=== PATIENT | female | born 1945 | race Caucasian/White ===

== ENCOUNTER 2020-03-05 17:28 | Inpatient (IN) ==
[2020-03-05] MEDS ORDERED: ONDANSETRON 4 MG/2 ML VIAL IV PRN (20:22)
[2020-03-05] MEDS ORDERED: ALBUTEROL 2.5 MG/3 ML NEB RESP TX PRN (20:22)
[2020-03-05] MEDS ORDERED: PROMETHAZINE 25 MG/1 ML VIAL IM PRN (20:22)
[2020-03-05] MEDS ORDERED: AMIODARONE INJ 450 MG in DEXTROSE 5% 241 ML IV SCH (20:30)
[2020-03-06] MEDS ORDERED: AMIODARONE INJ 450 MG in DEXTROSE 5% 241 ML IV SCH (02:30)
[2020-03-06 04:07] LABS: Basophils % 0.4 % (0.0-0.8); Eosinophils # 0.1 10*3/uL (0.0-0.87); Eosinophils % 0.8 % (0.00-10.9); Hematocrit 32.4 VOL% (35.7-47.0); Hemoglobin 10.5 GM/DL (12.0-16.0); Immature Granulocytes % 0.3 %; Immature Granulocytes Absolute 0.03 #; Lymphocytes # 2.9 10*3/uL (1.4-4.0); Lymphocytes % 26.9 % (21.3-54.2); Mean Corpuscular HGB Conc 32.4 GM/DL (32-36); Mean Platelet Volume 10.5 FL (9.6-12.0); Monocytes % 8.6 % (1.7-12.7); Platelet Count 272 T/CUMM (130-400); Red Blood Count 3.52 MC/CUMM (3.8-5.5); Red Cell Distribution Width 12.7 % (9.3-17.3); White Blood Count 10.8 T/CUMM (4-12)
[2020-03-06 04:10] LABS: Albumin 2.7 G/DL (3.4-5.0); Bilirubin,Total 0.9 MG/DL (0.2-1.0); Calcium 8.3 MG/DL (8.5-10.1); Osmolality,Calculated 276.7 MOS/KG (273-304); Total Protein 5.5 G/DL (6.4-8.3)
[2020-03-06 04:22] LABS: INR 1.1; PT Patient Result 11.7 SECS (9.8-11.9)
[2020-03-06] MEDS ORDERED: DOCUSATE SODIUM 100 MG CAPSULE PO PRN (08:54)
[2020-03-06] MEDS ORDERED: SACUBITRIL/VALSARTAN 49-51 MG TABLET PO SCH (09:00)
[2020-03-06] MEDS ORDERED: POTASSIUM CHLORIDE 20 MEQ TABLET PO ONE (09:14)
[2020-03-06] MEDS: SPIRONOLACTONE 25 MG TABLET PO SCH (09:28)
[2020-03-06] MEDS: ASPIRIN CHEW 81 MG TABLET PO SCH (09:28)
[2020-03-06] MEDS: POTASSIUM CHLORIDE 10 MEQ TABLET PO SCH (09:29)
[2020-03-06] MEDS: ATORVASTATIN 40 MG TABLET PO SCH (09:29)
[2020-03-06] MEDS: FERROUS SULFATE 325 MG TABLET PO SCH (09:29)
[2020-03-06] MEDS: carvediloL 12.5 MG TABLET PO SCH ×2 (09:29→21:09)
[2020-03-06] MEDS: PANTOPRAZOLE 40 MG TABLET PO SCH (09:30)
[2020-03-06] MEDS: ENOXAPARIN 40 MG/0.4 ML SYRINGE SUBCUT SCH (09:30)
[2020-03-06] MEDS: FUROSEMIDE 40 MG TABLET PO SCH (09:30)
[2020-03-06] MEDS: CLOPIDOGREL 75 MG TABLET PO SCH (09:30)
[2020-03-06] MEDS: AMIODARONE 200 MG TABLET PO SCH (09:36)
[2020-03-06] MEDS: SACUBITRIL/VALSARTAN 49-51 MG TABLET PO SCH ×2 (10:40→21:06)
[2020-03-07 05:54] LABS: Calcium 8.4 MG/DL (8.5-10.1); Osmolality,Calculated 278.5 MOS/KG (273-304)
[2020-03-07 06:00] LABS: Basophils # 0.1 10*3/uL (0.0-0.2); Basophils % 0.7 % (0.0-0.8); Eosinophils # 0.1 10*3/uL (0.0-0.87); Eosinophils % 1.2 % (0.00-10.9); Hematocrit 36.1 VOL% (35.7-47.0); Hemoglobin 11.8 GM/DL (12.0-16.0); Immature Granulocytes % 0.3 %; Immature Granulocytes Absolute 0.03 #; Lymphocytes # 2.8 10*3/uL (1.4-4.0); Lymphocytes % 30.1 % (21.3-54.2); Mean Corpuscular HGB Conc 32.7 GM/DL (32-36); Mean Corpuscular Volume 91.2 FL (87-102); Monocytes % 10.1 % (1.7-12.7); Neutrophils % 57.6 % (38.7-73.9); Platelet Count 287 T/CUMM (130-400); Red Blood Count 3.96 MC/CUMM (3.8-5.5); Red Cell Distribution Width 12.8 % (9.3-17.3); White Blood Count 9.2 T/CUMM (4-12)
[2020-03-07] MEDS: SACUBITRIL/VALSARTAN 49-51 MG TABLET PO SCH (08:52)
[2020-03-07] MEDS: PANTOPRAZOLE 40 MG TABLET PO SCH (08:52)
[2020-03-07] MEDS: ASPIRIN CHEW 81 MG TABLET PO SCH (08:52)
[2020-03-07] MEDS: AMIODARONE 200 MG TABLET PO SCH (08:52)
[2020-03-07] MEDS: CLOPIDOGREL 75 MG TABLET PO SCH (08:52)
[2020-03-07] MEDS: POTASSIUM CHLORIDE 10 MEQ TABLET PO SCH (08:52)
[2020-03-07] MEDS: FERROUS SULFATE 325 MG TABLET PO SCH (08:53)
[2020-03-07] MEDS: ENOXAPARIN 40 MG/0.4 ML SYRINGE SUBCUT SCH (08:53)
[2020-03-07] MEDS: carvediloL 12.5 MG TABLET PO SCH (08:53)
[2020-03-07] MEDS: ATORVASTATIN 40 MG TABLET PO SCH (08:53)
[2020-03-07] MEDS: FUROSEMIDE 40 MG TABLET PO SCH (08:53)
[2020-03-07] MEDS: SPIRONOLACTONE 25 MG TABLET PO SCH (08:53)
[2020-03-07 09:00] VITALS: BP 130/64
[2020-03-07] MEDS ORDERED: INFLUENZA VIRUS VACCINE 0.5 ML SYRINGE IM ONE (13:30)
== END 2020-03-07 13:14 | disposition home or self-care (01) | DRG 309 ==
LOC: SUATTDRO 19:38 → N.ICU 19:38 → N.TELES 03-06 11:20
PROVIDERS: ADMIT Internal Medicine; ATTEND Internal Medicine